=== PATIENT | female | born 1945 | race Caucasian/White ===

== ENCOUNTER → 2023-07-14 14:43 | Outpatient (REF) | payer OTHER, SELFPAY | LOC: RCS 14:43 | PROVIDERS: ATTENDING PHYSICIAN Internal Medicine Cardiovascular Disease; FAMILY PHYSICIAN Family Medicine | DX: I31.39 Other pericardial effusion (noninflammatory) (principal) | CPT/HCPCS: 93306 ==

== ENCOUNTER 2023-07-25 12:27 | Inpatient (IN) | payer OTHER, SELFPAY ==
[2023-07-25] VITALS (16 sets, daily range): BP systolic 95–131; BP diastolic 59–88; BMI 20.7
[2023-07-25 09:15] LABS: Hematocrit 38.9 % (37.0-47.0); Hemoglobin 13.7 g/dL (12.0-16.0); Mean Corp Hgb Conc. 35.2 g/dL (33.0-37.0); Mean Corpuscular Hgb 32.1 pg (27.0-31.0); Mean Corpuscular Volume 91.1 fL (81.0-99.0); Mean Platelet Volume 8.7 fL (7.4-10.4); Platelet Count 245 10^3/uL (130-400); Red Blood Cell Count 4.27 10^6/uL (4.20-5.40); White Blood Cell Count 6.2 10^3/uL (4.8-10.8)
[2023-07-25 09:42] LABS: Blood Urea Nitrogen 19 mg/dl (7-17); Calcium 9.5 mg/dl (8.4-10.2); Carbon Dioxide 25 mmol/L (22-30); Chloride 104 mmol/L (98-107); Estimated Creatinine Clearance 63 ml/min; Glucose 104 mg/dl (70-99); Potassium 3.8 mmol/L (3.5-5.1); Sodium 139 mmol/L (135-145); eGFR > 60.00
[2023-07-25] MEDS: TYLENOL 650 MG PO (12:58)
[2023-07-25 13:02] LABS: Body Fluid Glucose 79 mg/dl; Body Fluid LDH 104 U/L; Body Fluid Protein 2.2 g/dl
[2023-07-25] MEDS: MOTRIN 600 MG PO ×2 (13:37→19:30)
[2023-07-25] MEDS: COLCHICINE 0.299999999999999989 MG PO ×2 (13:37→19:25)
[2023-07-25 14:41] LABS: Body Fluid WBC 262 /CUMM
[2023-07-25 15:02] LABS: Body Fluid Second Tech EF
[2023-07-25 15:13] LABS: Body Fluid Lymphocytes 32 %; Body Fluid Macrophages 38 %; Body Fluid Mesothelials 30 %
--- NOTE | 2023-07-25 16:04 | ITS.CL.PN ---
Sales And Service Agent - Procedure Note
Procedure
Procedure Note:
PERICARDIOCENTESIS REPORT
Date: July 25, 2023
Referring: Osiel Heber
Indications: Moderate-sized pericardial effusion
Procedure: Pericardiocentesis via subxiphoid approach under echocardiographic guidance
After obtaining consent, the patient was brought to the cardiac lab systems analyst and placed in a recumbent position. Echocardiogram was used to ascertain the best approach vector. A subxiphoid approach was selected. The site was anesthetized with 1%
lidocaine. Under ultrasound guidance, a micropuncture needle was advanced into the pericardial space under negative pressure. After obtaining flashback of pericardial fluid, the micropuncture wire was advanced into the pericardial space and the
needle was removed. The micropuncture sheath was advanced over the wire and the wire and dilator were removed. Agitated saline was injected through the micropuncture sheath confirming its presence in the pericardial space on echocardiography. A
0.035 inch J-wire was advanced through the micropuncture sheath and into the pericardial space. The micropuncture sheath was removed and a 6 Persian sheath was advanced over the 0.035 inch wire. A pigtail catheter was advanced through the sheath over
the J-wire and placed in the pericardial space. The J-wire was removed. The pericardial pressure was measured. A sufficient sample of pericardial fluid was removed and sent for laboratory testing (hemoglobin, hematocrit, white blood cell count, LDH,
albumin, total protein, cytology and culture). The pigtail catheter was then connected to a Vacutainer and the pericardial space was evacuated. Serial echocardiography confirmed reduction in the pericardial effusion from severe to trace. All
evidence of tamponade was removed. The 6 Persian sheath was sutured into place. The pigtail catheter was likewise sutured into place then curled around the sheath and covered by a sterile Tegaderm. Repeat pericardial pressure was measured,
confirming significant reduction. The pigtail catheter was then connected to a RYANN drain to suction. The patient reported significant improvement in their shortness of breath.
Procedure Details:
Approach: Subxiphoid
Sheath/Drain size (Fr) 6
Pericardial Volume (mL): 210
Effusion type: Straw-colored
Non-effusion blood loss (mL): Minimal
Pericardial pressures
Pre drainage (mmHg): 8
Post drainage (mmHg): 2
RADIATION SUMMARY: Fluoro Time (min): 0.2, Dose (mGy): 0.92 DAP (Gy.cm2) : .013
Conclusion:
1. Successful pericardiocentesis via subxiphoid approach under echocardiographic guidance with 210 cc of straw-colored pericardial fluid output. Pericardial drain secured in place via a 6 Persian sheath.
2. Pericardial fluid has been sent for laboratory analysis.
Recommendations:
1. Pain control as needed.
2. Plan to discontinue drain once pericardial output less than 25 cc over 24 hours or once the drain has been in for 5 or more days given increased risk for infection.
3. Plan to resume Eliquis tomorrow morning with close monitoring of out put via pericardial drain. Would recommend repeat limited echocardiogram on Friday to reassess timing of pulling the drain
Copy to: Osiel Mcmullen,
Maritza Costello MD, FACC, [facility]
--- NOTE | 2023-07-25 16:18 | CM ---
CM following for DC planning needs.
Met w/ patient at bedside to complete initial assessment.
Pt. resides in a private, multi level home. She is functionally indep. w/ ADLs, mobility without the use of any assisted device.
Pt. has Rx plan and uses [facility] for prescription needs.
Anticipated DC plan is for home, no needs.
Will remain available.
--- NOTE | 2023-07-25 16:26 | PTCARENOTE ---
Received patient from labor and delivery nurse at 1245 after pericardiocentesis which was scheduled as an outpatient. Patient complaining of pain upon admission rated 7/10 at upper chest area, pain increased with movement and inspiration. Dressing at epigastric
area is dry and intact, with straw colored drainage in container. Medicated initially with tylenol which was ineffective. Notified Albert Solares NP and patient given motrin and colchicine as ordered. Patient now appears much more comfortable, dressing
remains dry and intact, VSS. in visiting, call spann at the bedside.
[2023-07-25] MEDS: MORPHINE SULFATE 2 MG IV (17:25)
--- NOTE | 2023-07-25 19:35 | PTCARENOTE ---
Assumed care at 1900. Nauseous, vomited x1. Reports relief of nausea after vomiting. Reports 10/17 upper middle chest pain. Medicated w/ scheduled colchicine and prn ibuprofen, see MAR. Plan of care ongoing.
--- NOTE | 2023-07-25 20:33 | PTCARENOTE ---
Nausea returned, vomited x1. Tutu TAMAYO updated on continued nausea and pain. BP remains stable, 100s/70-60s, audible heart sounds, regular rate/rhythm, no JVD noted.
[2023-07-25] MEDS: TORADOL 15 MG IV (20:48)
[2023-07-25] MEDS: ZOFRAN 4 MG IV (20:49)
[2023-07-26 01:42] VITALS: BP 112/68
[2023-07-26] MEDS: ULTRAM 25 MG PO (01:49)
[2023-07-26 01:52] LABS: Hematocrit 36.9 % (37.0-47.0); Hemoglobin 13.4 g/dL (12.0-16.0); Mean Corp Hgb Conc. 36.3 g/dL (33.0-37.0); Mean Corpuscular Hgb 31.9 pg (27.0-31.0); Mean Corpuscular Volume 87.9 fL (81.0-99.0); Mean Platelet Volume 8.6 fL (7.4-10.4); Platelet Count 213 10^3/uL (130-400); Red Cell Dist. Width 12.8 % (11.5-14.5); White Blood Cell Count 14.6 10^3/uL (4.8-10.8)
[2023-07-26 02:15] LABS: Blood Urea Nitrogen 22 mg/dl (7-17); Calcium 8.8 mg/dl (8.4-10.2); Carbon Dioxide 23 mmol/L (22-30); Chloride 104 mmol/L (98-107); Estimated Creatinine Clearance 63 ml/min; Glucose 139 mg/dl (70-99); HDL Cholesterol 77 mg/dl; LDL Cholesterol, Calculated 127 mg/dl; Potassium 3.7 mmol/L (3.5-5.1); Sodium 134 mmol/L (135-145); Total Cholesterol 214 mg/dl (50-199); Triglyceride 51 mg/dl (10-149); Very Low Density Lipoprotein 10 mg/dl (0-30); eGFR > 60.00
[2023-07-26] MEDS: MOTRIN 600 MG PO ×5 (03:33→23:35)
--- NOTE | 2023-07-26 06:31 | PTCARENOTE ---
Pericardial drain drained 75 ml SS fluid overnight. Tramadol not very effective in managing drain site pain. Motrin more effective bringing pain level down to a 3 from a 6-7. Pt. states she feels much better this morning.
[2023-07-26 06:49] VITALS: BP 103/59
[2023-07-26] MEDS: ELIQUIS 5 MG PO ×2 (07:31→19:33)
[2023-07-26] MEDS: COLCHICINE 0.299999999999999989 MG PO ×2 (07:31→19:33)
[2023-07-26] MEDS: PROTONIX 40 MG PO (07:31)
--- NOTE | 2023-07-26 10:26 | W.PN.CARDCBS ---
Today's Communication / Plan
-
Resume Eliquis and watch for bleeding or increased drain outpt.
Echo July 27 prior to removing drain fridayJuly 27
Impression / Plan
-
.
Impression:
pericardial effusion s/p pericardiocentesis July [address] Kaye Nov 2022
Hx SVT
Hyperlipidemia
Cath Jul 25 2023:
1. Successful pericardiocentesis via subxiphoid approach under echocardiographic guidance with 210 cc of straw-colored pericardial fluid output. Pericardial drain secured in place via a 6 Nepali sheath.
2. Pericardial fluid has been sent for laboratory analysis.
Plan:
Cont pain control
Eliquis resumed July 25, monitor for increased drainage.
Plan for echo July 27 and if outpt reduced and without significant recurrent effusion, drain d/c and likely pt d/c
Reviewed with nursing.
Progress Note - Associate Professor Of Radiology
Subjective
Date of Service: July 26, 2023
Pt seen and examined. No complaints. No chest pain or shortness of breath.
Objective
Labs:
07/26/23 01:47
07/26/23 01:47
Labs
Hgb 13.4 g/dL (12.0-16.0) 07/26/23 01:47
Hct 36.9 % (37.0-47.0) L 07/26/23 01:47
Plt Count 213 10^3/uL (130-400) 07/26/23 01:47
Sodium 134 mmol/L (135-145) L 07/26/23 01:47
Potassium 3.7 mmol/L (3.5-5.1) 07/26/23 01:47
BUN 22 mg/dl (7-17) H 07/26/23 01:47
Creatinine 0.5 mg/dL (0.6-1.0) L 07/26/23 01:47
Glucose 139 mg/dl (70-99) H 07/26/23 01:47
Vital Signs and I&O:
Vital Signs
Temp Pulse Resp BP Pulse Ox
98.3 F 86 16 103/59 95
07/26/23 07:15 07/26/23 07:15 07/26/23 07:15 07/26/23 06:49 07/26/23 07:15
Vital Signs
Temp Pulse Resp BP Pulse Ox
98.3 F 86 16 103/59 95
07/26/23 07:15 07/26/23 07:15 07/26/23 07:15 07/26/23 06:49 07/26/23 07:15
Intake & Output
07/24/23 07/25/23 07/26/23 07/27/23
06:59 06:59 06:59 06:59
Intake Total 360 / 360
Output Total 325 / 325
Balance 35 / 35
Physical Exam
Physical Exam
General: No acute distress, AAOX3
Neck: Negative JVD
Heart: Regular, Negative S3 positive S1/S2, Negative S4, No murmur
Lungs: CTA b/l, negative wheezes/rales/rhonchi
Abd: Positive BS, NT/ND, neg rebound/rigidity/guarding
Ext: Negative cyanosis/clubbing/edema
Neuro: nonfocal
[2023-07-26 11:04] VITALS: BP 99/58
[2023-07-26 15:25] VITALS: BP 100/61
--- NOTE | 2023-07-26 16:08 | PTCARENOTE ---
Assumed care of pt from day RN. Pt received awake and alert, Ox3. VSS, CM shows NSR 80's, POX 97% on RA. Pericardial drain intact, draining small amounts of serosang fluid. Pt medicated with Motrin 600 mg as per MAY for 6/10 upper chest pain.
[2023-07-26 19:23] VITALS: BP 105/59
[2023-07-26] MEDS: TYLENOL 650 MG PO (19:33)
[2023-07-26 23:32] VITALS: BP 107/68
[2023-07-27 04:26] VITALS: BP 108/73
[2023-07-27 05:03] LABS: Hematocrit 35.8 % (37.0-47.0); Hemoglobin 13.4 g/dL (12.0-16.0); Mean Corp Hgb Conc. 37.4 g/dL (33.0-37.0); Mean Corpuscular Hgb 31.8 pg (27.0-31.0); Mean Corpuscular Volume 84.8 fL (81.0-99.0); Mean Platelet Volume 8.9 fL (7.4-10.4); Platelet Count 204 10^3/uL (130-400); Red Blood Cell Count 4.22 10^6/uL (4.20-5.40); Red Cell Dist. Width 12.5 % (11.5-14.5); White Blood Cell Count 7.6 10^3/uL (4.8-10.8)
[2023-07-27 05:11] LABS: Blood Urea Nitrogen 16 mg/dl (7-17); Calcium 8.5 mg/dl (8.4-10.2); Carbon Dioxide 23 mmol/L (22-30); Chloride 103 mmol/L (98-107); Estimated Creatinine Clearance 63 ml/min; Glucose 94 mg/dl (70-99); Magnesium 2.2 mg/dl (1.6-2.3); Potassium 3.5 mmol/L (3.5-5.1); Sodium 133 mmol/L (135-145); eGFR > 60.00
--- NOTE | 2023-07-27 05:18 | PTCARENOTE ---
No output from pericardial drain this shift. NSR on the monitor. Motrin effective for drain site discomfort.
[2023-07-27 06:54] VITALS: BP 121/73
--- NOTE | 2023-07-27 08:34 | PTCARENOTE ---
Assumed care of pt from night RN. Pt received asleep, but wakens easily to verbal. VSs, CM shows NSR 90's, POX 94% on RA. Pericardial drain intact with minimal serosang drg. Pt awaiting ECHO on Friday. Pt c/o minimal sleep last night, usually
takes Melatonin- will ask MD for order.
[2023-07-27] MEDS: MOTRIN 600 MG PO ×2 (09:36→19:58)
[2023-07-27] MEDS: PROTONIX 40 MG PO (09:37)
[2023-07-27] MEDS: ELIQUIS 5 MG PO ×2 (09:37→20:00)
[2023-07-27] MEDS: COLCHICINE 0.299999999999999989 MG PO ×2 (09:37→19:59)
--- NOTE | 2023-07-27 09:44 | PTCARENOTE ---
Motrin 600 mg given as per MAY for 3/10 upper chest pain.
--- NOTE | 2023-07-27 10:30 | W.PN.CARDCBS ---
Today's Communication / Plan
-
Likely drain out tomorrow after echo
Impression / Plan
-
.
Impression:
pericardial effusion s/p pericardiocentesis July [address] Kaye Nov 2022
Hx SVT
Hyperlipidemia
Cath Jul 25 2023:
1. Successful pericardiocentesis via subxiphoid approach under echocardiographic guidance with 210 cc of straw-colored pericardial fluid output. Pericardial drain secured in place via a 6 Setswana sheath.
2. Pericardial fluid has been sent for laboratory analysis.
Plan:
Outpt of drain minimal.
Pain well controlled.
Tolerating Eliquis.
Apparently fluid with 3 different Gram positive organisms, however microbiologist noted that the specimen received was leaking into a specimen bag, so likely contamination.
There is no sign of infection. Continue monitoring.
Plan for echo July 27 and if outpt remains reduced and without significant recurrent effusion, drain d/c and likely pt d/c
Reviewed with nursing.
Progress Note - Tile Machine Operator
Subjective
Date of Service: July 27, 2023
Pt seen and examined. No complaints. No chest pain or shortness of breath.
Objective
Labs:
07/27/23 04:35
07/27/23 04:35
Labs
Hgb 13.4 g/dL (12.0-16.0) 07/27/23 04:35
Hct 35.8 % (37.0-47.0) L 07/27/23 04:35
Plt Count 204 10^3/uL (130-400) 07/27/23 04:35
Sodium 133 mmol/L (135-145) L 07/27/23 04:35
Potassium 3.5 mmol/L (3.5-5.1) 07/27/23 04:35
BUN 16 mg/dl (7-17) 07/27/23 04:35
Creatinine 0.5 mg/dL (0.6-1.0) L 07/27/23 04:35
Glucose 94 mg/dl (70-99) 07/27/23 04:35
Vital Signs and I&O:
Vital Signs
Temp Pulse Resp BP Pulse Ox
97.8 F 85 18 121/73 94
07/27/23 06:56 07/27/23 06:54 07/27/23 06:56 07/27/23 06:54 07/27/23 08:27
Vital Signs
Temp Pulse Resp BP Pulse Ox
97.8 F 85 18 121/73 94
07/27/23 06:56 07/27/23 06:54 07/27/23 06:56 07/27/23 06:54 07/27/23 08:27
Intake & Output
07/25/23 07/26/23 07/27/23 07/28/23
06:59 06:59 06:59 06:59
Intake Total 360 / 360 480 / 480
Output Total 325 / 325 25 / 25
Balance 35 / 35 455 / 455
Physical Exam
Physical Exam
General: No acute distress, AAOX3
Neck: Negative JVD
Heart: Regular, Negative S3 positive S1/S2, Negative S4, No murmur
Lungs: CTA b/l, negative wheezes/rales/rhonchi
Abd: Positive BS, NT/ND, neg rebound/rigidity/guarding
Ext: Negative cyanosis/clubbing/edema
Neuro: nonfocal
[2023-07-27 10:57] VITALS: BP 112/64
--- NOTE | 2023-07-27 12:43 | PTCARENOTE ---
Called received from Microbiology in re: to pericardial fluid that was sent on 07/24. Culture had grown out three different Gram + organisms, however the specimen bag was received leaking, so the probability of contamination is high.
[2023-07-27 14:57] VITALS: BP 115/70
[2023-07-27 18:40] VITALS: BP 119/77
[2023-07-27 22:26] VITALS: BP 104/70
--- NOTE | 2023-07-27 23:02 | PTCARENOTE ---
No complaints at present. SR on the monitor 60's-70's.
[2023-07-28 04:14] VITALS: BP 109/76
[2023-07-28 04:59] LABS: Hematocrit 36.1 % (37.0-47.0); Hemoglobin 12.8 g/dL (12.0-16.0); Mean Corp Hgb Conc. 35.5 g/dL (33.0-37.0); Mean Corpuscular Hgb 31.1 pg (27.0-31.0); Mean Corpuscular Volume 87.8 fL (81.0-99.0); Mean Platelet Volume 9.3 fL (7.4-10.4); Platelet Count 229 10^3/uL (130-400); Red Blood Cell Count 4.11 10^6/uL (4.20-5.40); Red Cell Dist. Width 12.6 % (11.5-14.5); White Blood Cell Count 5.6 10^3/uL (4.8-10.8)
[2023-07-28 05:26] LABS: Blood Urea Nitrogen 16 mg/dl (7-17); Carbon Dioxide 23 mmol/L (22-30); Chloride 105 mmol/L (98-107); Estimated Creatinine Clearance 63 ml/min; Glucose 96 mg/dl (70-99); Magnesium 2.1 mg/dl (1.6-2.3); Potassium 3.9 mmol/L (3.5-5.1); Sodium 133 mmol/L (135-145); eGFR > 60.00
[2023-07-28 06:49] VITALS: BP 111/76
[2023-07-28 06:58] LABS: Body Fluid Hematocrit < 1.0 %
[2023-07-28] MEDS: COLCHICINE 0.299999999999999989 MG PO (07:32)
[2023-07-28] MEDS: PROTONIX 40 MG PO (07:32)
[2023-07-28] MEDS: ELIQUIS 5 MG PO (07:32)
[2023-07-28] MEDS: TYLENOL 650 MG PO (07:34)
--- NOTE | 2023-07-28 09:49 | PTCARENOTE ---
Pt received from expediter RN. AAHamlet3. NSR on differential tester. HRs 70-80s. Echo done at bedside this morning. Pericardial drain remains in at this time. Dressing CDI. Plan for possible removal today. Assessment documented. Pt in bed, call spann
within reach.
--- NOTE | 2023-07-28 10:22 | W.PN.CARDCBS ---
Today's Communication / Plan
-
Outpt of drain minimal and to be d/c'd today
Prelim echo without significant pericardial fluid.
Tolerating Eliquis.
Apparently fluid with 3 different Gram positive organisms, however microbiologist noted that the specimen received was leaking into a specimen bag, so likely contamination.
There is no sign of infection. will resend culture
Likely pt d/c after drain pulled.
Impression / Plan
-
.
Impression:
pericardial effusion s/p pericardiocentesis July [address] Kaye Nov 2022
Hx SVT
Hyperlipidemia
Cath Jul 25 2023:
1. Successful pericardiocentesis via subxiphoid approach under echocardiographic guidance with 210 cc of straw-colored pericardial fluid output. Pericardial drain secured in place via a 6 Urdu sheath.
2. Pericardial fluid has been sent for laboratory analysis.
Plan:
Outpt of drain minimal and to be d/c'd today
Prelim echo without significant pericardial fluid.
Tolerating Eliquis.
Apparently fluid with 3 different Gram positive organisms, however microbiologist noted that the specimen received was leaking into a specimen bag, so likely contamination.
There is no sign of infection. will resend culture
Likely pt d/c after drain pulled.
Reviewed with nursing.
Discussed with at bedside.
Outpt cardiac follow up
Progress Note - Healthcare Prof
Subjective
Date of Service: July 28, 2023
Pt seen and examined. No complaints. No chest pain or shortness of breath.
Objective
Labs:
07/28/23 04:20
07/28/23 04:20
Labs
Hgb 12.8 g/dL (12.0-16.0) 07/28/23 04:20
Hct 36.1 % (37.0-47.0) L 07/28/23 04:20
Plt Count 229 10^3/uL (130-400) 07/28/23 04:20
Sodium 133 mmol/L (135-145) L 07/28/23 04:20
Potassium 3.9 mmol/L (3.5-5.1) 07/28/23 04:20
BUN 16 mg/dl (7-17) 07/28/23 04:20
Creatinine 0.5 mg/dL (0.6-1.0) L 07/28/23 04:20
Glucose 96 mg/dl (70-99) 07/28/23 04:20
Vital Signs and I&O:
Vital Signs
Temp Pulse Resp BP Pulse Ox
98.3 F 110 18 111/76 95
07/28/23 06:47 07/28/23 07:00 07/28/23 06:47 07/28/23 06:49 07/28/23 06:47
Vital Signs
Temp Pulse Resp BP Pulse Ox
98.3 F 110 18 111/76 95
07/28/23 06:47 07/28/23 07:00 07/28/23 06:47 07/28/23 06:49 07/28/23 06:47
Intake & Output
07/26/23 07/27/23 07/28/23 07/29/23
06:59 06:59 06:59 06:59
Intake Total 360 / 360 480 / 480
Output Total 325 / 325 25 / 25 50 / 50
Balance 35 / 35 455 / 455 -50 / -50
Physical Exam
Physical Exam
General: No acute distress, AAOX3
Neck: Negative JVD
Heart: Regular, Negative S3 positive S1/S2, Negative S4, No murmur
Lungs: CTA b/l, negative wheezes/rales/rhonchi
Abd: Positive BS, NT/ND, neg rebound/rigidity/guarding
Ext: Negative cyanosis/clubbing/edema
Neuro: nonfocal
[2023-07-28 11:06] VITALS: BP 119/77
--- NOTE | 2023-07-28 12:26 | PTCARENOTE ---
Pericardial drain removed at bedside by provider. Pt tolerated well. Sterile 4x4 gauze and Tegaderm applied. Dressing CDI. Pericardial fluid sent to micro lab for cultures.
--- NOTE | 2023-07-28 13:29 | W.PN.UPDATE ---
Update Note
Progress Note Update
Attending addendum: Pericardial drain was removed without incident. The Vacutainer device was sent to microbiology for additional culture secondary to possible contamination of initial pericardial fluid sample
[2023-07-28 16:32] VITALS: BP 110/69
--- NOTE | 2023-07-28 16:48 | CM ---
CM following for DC planning needs.
Met w/ patient, spouse at bedside.
Pt. feels prepared for DC. Offers no concerns or needs at this time.
Plan is for home, no needs.
--- NOTE | 2023-07-28 17:12 | W.DS.TRANS ---
DC Summary - Pin Cleaner
-
Discharge Instructions:
Sleep Apnea Risk Low
Discharge Diagnosis/Procedures pericardial effusion post pericardiocentesis
Diet Low Cholesterol
Activity Other activity,As tolerated
Driving Restrictions No driving for 24 hours
Bathing Restrictions OK to Shower
Others Tests -You are scheduled for an echocardiogram in the
cardiac services department at [facility] on 08/05/23 at 7:30 AM. Please
register in the main lobby about 5-10 minutes
before your appointment.
Instructions:
Stand-Alone Forms: DC Instructions- Cath/EP Lab
Changes to Home Medications: Yes
Discharge Medications:
DC Medications w/original date entered in [facility]
drospirenone 0.25 mg-estradiol 0.5 mg tablet (Angeliq) 1 tab PO DAILY Hormonal agent 07/26/22
esomeprazole magnesium 20 mg capsule,delayed release (Nexium) 20 mg PO DAILY Gastrointestinal issue 07/26/22
apixaban 5 mg tablet (Eliquis) 5 mg PO BID #60 tabs 07/27/22
estradiol 2 mg (7.5 mcg/24 hour) vaginal ring (Estring) 1 vag ring vaginal [id number] Hormonal agent 07/27/22
gabapentin 300 mg capsule 300 mg PO PRN PRN neuropathy/ arthritis 07/27/22
colchicine (cardiac) 0.5 mg tablet 0.3 mg PO BID 11/13/22
celecoxib 200 mg capsule (Celebrex) 200 mg PO DAILY 11/25/22
magnesium 200 mg tablet 200 mg PO HS 11/25/22
multivitamin 1 tab PO DAILY 11/25/22
vit C 250 mg-vit E 90 mg-zinc 40 mg-copper 1 [id number] capsule (PreserVision AREDS-2) 1 tab PO BID 11/25/22
omega [id number]-dan-fish oil 1,200 mg (144 mg-216 mg) capsule (Fish Oil) 1 cap PO DAILY 07/25/23
ibuprofen 600 mg tablet 600 mg PO Q4HPRN PRN moderate pain #30 tabs 07/28/23
Home Medication Changes
New to ibuprofen PRN
Pending Results: No
== END 2023-07-28 18:05 | disposition home or self-care (01) | DRG 316 ==
LOC: IVU 12:27
PROVIDERS: Nurse Practitioner Adult Health; ADMITTING PHYSICIAN Internal Medicine Interventional Cardiology; FAMILY PHYSICIAN Family Medicine
PROC: 0W9D30Z Drainage of Pericardial Cavity with Drainage Device, Percutaneous Approach (ICD-10-PCS; 2023-07-25)
DX: I31.39 Other pericardial effusion (noninflammatory) (principal); E78.5 Hyperlipidemia, unspecified; Z79.01 Long term (current) use of anticoagulants; Z79.1 Long term (current) use of non-steroidal anti-inflammatories (NSAID)
CPT/HCPCS: 93308; 33016; 80048; 80061; 82945; 83615; 83735; 84157; 85014; 85027; 87015; 87070; 87102; 87116; 87147; 87205; 87206; 88112; 89051; 93005; C1894

== ENCOUNTER → 2023-08-05 07:26 | Outpatient (REF) | payer OTHER, SELFPAY ==
[2023-08-05 09:00] LABS: ALT (SGPT) 16 U/L (0-35); AST (SGOT) 23 U/L (14-36); Albumin 3.8 g/dl (3.5-5.0); Alkaline Phosphatase 40 U/L (38-126); Blood Urea Nitrogen 19 mg/dl (7-17); Calcium 9.3 mg/dl (8.4-10.2); Carbon Dioxide 27 mmol/L (22-30); Chloride 103 mmol/L (98-107); Glucose 90 mg/dl (70-99); HDL Cholesterol 68 mg/dl; LDL Cholesterol, Calculated 148 mg/dl; Potassium 3.8 mmol/L (3.5-5.1); Sodium 138 mmol/L (135-145); Total Bilirubin 0.5 mg/dl (0.2-1.3); Total Cholesterol 231 mg/dl (50-199); Total Protein 6.5 g/dl (6.3-8.2); Triglyceride 75 mg/dl (10-149); Very Low Density Lipoprotein 15 mg/dl (0-30); eGFR > 60.00
== END ==
LOC: RCS 07:26
PROVIDERS: ATTENDING PHYSICIAN Internal Medicine Cardiovascular Disease; FAMILY PHYSICIAN Family Medicine
DX: I31.39 Other pericardial effusion (noninflammatory) (principal); E78.2 Mixed hyperlipidemia
CPT/HCPCS: 93308; 36415; 80053; 80061; 93321; 93325

== ENCOUNTER → 2023-11-12 08:07 | Outpatient (REF) | payer OTHER, SELFPAY | LOC: RCS 08:07 | PROVIDERS: ATTENDING PHYSICIAN Internal Medicine Cardiovascular Disease; FAMILY PHYSICIAN Family Medicine | DX: I31.39 Other pericardial effusion (noninflammatory) (principal) | CPT/HCPCS: 93306 ==

== ENCOUNTER 2023-12-04 07:44 | Day surgery (SDC) | payer OTHER, SELFPAY ==
[2023-12-04] VITALS (8 sets, daily range): BP systolic 100–133; BP diastolic 54–77; BMI 21.1
[2023-12-04 08:20] LABS: Hematocrit 40.5 % (37.0-47.0); Hemoglobin 14.3 g/dL (12.0-16.0); Mean Corp Hgb Conc. 35.3 g/dL (33.0-37.0); Mean Corpuscular Hgb 31.6 pg (27.0-31.0); Mean Corpuscular Volume 89.4 fL (81.0-99.0); Mean Platelet Volume 8.7 fL (7.4-10.4); Platelet Count 233 10^3/uL (130-400); Red Blood Cell Count 4.53 10^6/uL (4.20-5.40); Red Cell Dist. Width 12.5 % (11.5-14.5); White Blood Cell Count 5.3 10^3/uL (4.8-10.8)
[2023-12-04 08:35] LABS: ALT (SGPT) 30 U/L (0-35); AST (SGOT) 37 U/L (14-36); Albumin 4.4 g/dl (3.5-5.0); Alkaline Phosphatase 48 U/L (38-126); Blood Urea Nitrogen 19 mg/dl (7-17); Calcium 9.6 mg/dl (8.4-10.2); Carbon Dioxide 30 mmol/L (22-30); Chloride 102 mmol/L (98-107); Estimated Creatinine Clearance 62 ml/min; Glucose 98 mg/dl (70-99); Potassium 4.1 mmol/L (3.5-5.1); Sodium 140 mmol/L (135-145); Total Bilirubin 0.7 mg/dl (0.2-1.3); eGFR > 60.00
--- NOTE | 2023-12-04 16:29 | ITS.CL.CATH ---
Course Developer - Catheterization
Cardiac Catheterization
Procedure Report:
RIGHT HEART CATHETERIZATION
Date of Procedure: December 04, 2023
Referring: Osiel Buck
INDICATION: Assess invasive hemodynamic
Hemodynamics (mmHg):
RA (m) : 5
RV (s/d,m) : 22/, 7
PA (s/d, m) : 19/6, 13
PCWP (m) : 7
PA saturation: 74.5% on room air
AO saturation: 98.0% on room air
SVC saturation: 71.5% on room air
Cardiac Output : 3.29 L/min
Cardiac Index : 2.21 L/min/m-2
Pulmonary vascular resistance: 1.82 bolanos unit
RADIATION SUMMARY: Fluoro Time (min): 0.5, Dose (mGy): 1.07, DAP (Gy.cm2) : 0.16
CONCLUSION:
1. Near normal right and left-sided filling pressures with normal cardiac output.
Copy to: Bernie Leyva, Siddharth Ceballos MD
Maritza Costello MD, [facility], [facility]
--- NOTE | 2023-12-04 16:32 | W.PN.UPDATE ---
Update Note
Progress Note Update
Interventional cardiology update note:
Patient presented for a scheduled outpatient pericardiocentesis however when we got around the table to look for the best window in comparison to the echocardiogram performed on November 12, 2023 where a small to moderate-sized effusion was noted
with a reasonable window for percutaneous pericardiocentesis via subcostal approach, on today's study a small effusion was noted mostly over the RA with no clear safe margins/window for pericardiocentesis either through subcostal approach, apical or
parasternal approach. In the setting we discussed with the patient who told us that since being off the Eliquis on Friday she has noted an improvement in her symptoms.
We proceeded to complete a right heart catheterization to rule out any other concerns for her recent shortness of breath and her filling pressures were near normal. In the setting we aborted and did not perform a pericardiocentesis and our plan is
to repeat a echocardiogram in 1 week while leaving her off Eliquis. We will check a 7-day monitor to look for any recurrent atrial fibrillation in light of her prior A-fib ablation to make sure she does not have an indication for long-term
anticoagulation. Given unclear etiology of recurrent pericardial effusions, we will also pursue a outpatient cardiac MRI and she will continue to keep an appointment with Dr. Siddharth Ceballos with plan to repeat echocardiogram towards the end of
December depending on what is seen on repeat echocardiogram next week.
Maritza Costello MD, FAC, [facility]
== END 2023-12-04 13:15 | disposition home or self-care (01) ==
LOC: CATH 07:44
PROVIDERS: ATTENDING PHYSICIAN Internal Medicine Interventional Cardiology; FAMILY PHYSICIAN Family Medicine; OTHER PHYSICIAN Internal Medicine Cardiovascular Disease
DX: Z13.6 Encounter for screening for cardiovascular disorders (principal); I31.39 Other pericardial effusion (noninflammatory); I48.91 Unspecified atrial fibrillation; I10 Essential (primary) hypertension; K21.9 Gastro-esophageal reflux disease without esophagitis; Z79.01 Long term (current) use of anticoagulants; Z82.49 Family history of ischemic heart disease and other diseases of the circulatory system
CPT/HCPCS: 93308; 80053; 85027; 93451; C1894

== ENCOUNTER → 2023-12-15 07:21 | Outpatient (REF) | payer OTHER, SELFPAY | LOC: RCS 07:21 | PROVIDERS: ATTENDING PHYSICIAN Internal Medicine Interventional Cardiology; FAMILY PHYSICIAN Family Medicine; OTHER PHYSICIAN Internal Medicine Cardiovascular Disease | DX: J90 Pleural effusion, not elsewhere classified (principal) | CPT/HCPCS: 93306 ==

== ENCOUNTER → 2023-12-23 16:31 | Outpatient (REF) | payer OTHER, SELFPAY | LOC: RAD 16:31 | PROVIDERS: ATTENDING PHYSICIAN Physician Assistant Medical; FAMILY PHYSICIAN Family Medicine | DX: M79.671 Pain in right foot (principal) | CPT/HCPCS: 73630 ==

== ENCOUNTER → 2024-01-07 07:15 | Outpatient (REF) | payer OTHER, SELFPAY | LOC: HWRCS 07:15 | PROVIDERS: ATTENDING PHYSICIAN Thoracic Surgery (Cardiothoracic Vascular Surgery); FAMILY PHYSICIAN Family Medicine; OTHER PHYSICIAN Internal Medicine Interventional Cardiology; REFERRING PHYSICIAN Internal Medicine Cardiovascular Disease | DX: I31.39 Other pericardial effusion (noninflammatory) (principal) | CPT/HCPCS: 93308 ==

== ENCOUNTER → 2024-01-15 08:32 | Outpatient (REF) | payer OTHER, SELFPAY | LOC: PAVMRI 08:32 | PROVIDERS: ATTENDING PHYSICIAN Internal Medicine Interventional Cardiology; FAMILY PHYSICIAN Family Medicine; OTHER PHYSICIAN Thoracic Surgery (Cardiothoracic Vascular Surgery); REFERRING PHYSICIAN Internal Medicine Cardiovascular Disease | DX: J90 Pleural effusion, not elsewhere classified (principal) | CPT/HCPCS: 75561; 75565; A9585 ==

== ENCOUNTER → 2024-05-13 14:00 | Outpatient (REF) | payer OTHER, SELFPAY | LOC: RCS 14:00 | PROVIDERS: ATTENDING PHYSICIAN Internal Medicine Cardiovascular Disease; FAMILY PHYSICIAN Family Medicine | DX: I31.39 Other pericardial effusion (noninflammatory) (principal); R06.02 Shortness of breath | CPT/HCPCS: 93308; 93321; 93325 ==

== ENCOUNTER → 2024-06-14 10:16 | Outpatient (REF) | payer OTHER, SELFPAY | LOC: RAD 10:16 | PROVIDERS: ATTENDING PHYSICIAN Family Medicine | DX: M15.9 Polyosteoarthritis, unspecified (principal); M81.0 Age-related osteoporosis without current pathological fracture | CPT/HCPCS: 77080 ==

== ENCOUNTER → 2024-12-02 10:13 | Outpatient (REF) | payer OTHER, SELFPAY | LOC: WDC 10:13 | PROVIDERS: ATTENDING PHYSICIAN Obstetrics & Gynecology; FAMILY PHYSICIAN Family Medicine | DX: R92.8 Other abnormal and inconclusive findings on diagnostic imaging of breast (principal) | CPT/HCPCS: 76642; 77061; 77065 ==